=== PATIENT | female | born 1950 | race Caucasian/White ===

== ENCOUNTER 2016-05-26 22:42 | Emergency (ER) | payer OTHER, MEDICAID ==
[~2016-05-26] VITALS: Ht 162.6 cm; Wt 75.9 kg
[2016-05-26 22:42] VITALS: TEMP 97.2
[~2016-05-26 22:42] MED LIST: ANTIVERT 12.512.5 MG PO; ANTIVERT 25MG25 MG PO; ASPI325T6 PO; CHOLESTEROL MED; DIURETIC; EPIVIR300 MG PO; LAMIVUDINE; LAMIVUDINE PO; LIPITOR 10MG10 MG PO; NO HOME MEDICATIONS; NORCO 325 MG-51 TAB PO; PEPCID40 MG PO; PRAVACHOL 40MG40 MG PO; REYATAZ PO; REYATAZ200 MG PO; STAVUDINE PO; VIREAD PO; VIREAD150 MG PO; ZERIT PO; ZERIT15 MG PO; ZOFRAN 4MG T4 MG/TAB PO; [UNRECOGNIZED DRUG - OTHER] PO; [UNRECOGNIZED DRUG - OTHER] PO
[2016-05-26] MEDS ORDERED: MAGNESIUM OXID500 MG PO (22:46)
[2016-05-26] MEDS ORDERED: REYATAZ PO (22:47)
[2016-05-26 23:04] LABS: BASO % 0.3 % (0.0-2.0); EOS # 0.1 (0.0-0.7); EOS % 1.1 % (0-4.0); GRAN # 8.2 (1.4-6.5); GRAN % 77.4 % (42.2-75.2); HEMATOCRIT 40.2 % (37.0-47.0); HEMOGLOBIN 13.9 g/dl (12.5-16.0); LYMPH # 1.6 (1.2-3.4); MEAN CELL VOLUME 98 fl (80.0-100.0); MEAN CORPUSCULAR HEMOGLOBIN 34 pg (27.0-31.0); MEAN CORPUSCULAR HGB CONC 35 g/dl (33.0-37.0); MEAN PLATELET VOLUME 11.3 fl (7.4-10.4); MONO # 0.6 (0.1-0.6); MONO % 5.9 % (1.7-9.3); PLATELET COUNT 180 K/mm3 (130-400); RED BLOOD COUNT 4.11 M/mm3 (4.10-5.30); WHITE BLOOD COUNT 10.6 K/mm3 (4.8-10.8)
[2016-05-26 23:14] LABS: ADJUSTED CALCIUM 8.8 mg/dL (8.4-10.2); ALBUMIN 4.2 gm/dL (3.5-5.0); BILIRUBIN,TOTAL 1.9 mg/dL (0.0-1.0); CREATININE, serum 1.02 mg/dL (0.52-1.25); POTASSIUM 3.8 mmol/L (3.4-5.0); TOTAL PROTEIN 7.4 gm/dL (6.4-8.2)
[2016-05-26 23:55] VITALS: BP 116/80; PULSE 60
== END 2016-05-27 | disposition home or self-care (01) ==
LOC: COL.ER 22:42
PROVIDERS: Emergency Medicine
DX: R42 Dizziness and giddiness (principal); I25.10 Atherosclerotic heart disease of native coronary artery without angina pectoris; Z21 Asymptomatic human immunodeficiency virus [HIV] infection status

== ENCOUNTER → 2017-07-16 | Outpatient (CLI) | payer BC ==
[~2017-07-16] MED LIST changes: +MAGNESIUM OXID500 MG PO
== END ==
LOC: MC.RAD 11:23
DX: Z12.31 Encounter for screening mammogram for malignant neoplasm of breast (principal); N63.20 Unspecified lump in the left breast, unspecified quadrant

== ENCOUNTER → 2017-07-18 | Outpatient (CLI) | payer BC | LOC: MC.RAD 10:21 | DX: N63.20 Unspecified lump in the left breast, unspecified quadrant (principal) ==

== ENCOUNTER 2017-12-02 09:03 | Day surgery (SDC) | payer BC, MEDICAID ==
[2017-12-02] VITALS (12 sets, daily range): BP systolic 103–139; BP diastolic 61–87; PULSE 54–71; TEMP 98
[~2017-12-02] VITALS: Ht 162.7 cm; Wt 83.1 kg
[2017-12-02] MEDS ORDERED: INDERAL 20MG20 MG PO (09:49)
[2017-12-02 10:27] LABS: HEMATOCRIT 40.8 % (37.0-47.0); HEMOGLOBIN 13.9 g/dl (12.5-16.0); MEAN CELL VOLUME 99 fl (80.0-100.0); MEAN CORPUSCULAR HEMOGLOBIN 34 pg (27.0-31.0); MEAN CORPUSCULAR HGB CONC 34 g/dl (33.0-37.0); MEAN PLATELET VOLUME 11.5 fl (7.4-10.4); PLATELET COUNT 216 K/mm3 (130-400); RED BLOOD COUNT 4.12 M/mm3 (4.10-5.30); REDCELL DISTRIBUTION WIDTH-CV 13.2 % (11.5-14.5)
[2017-12-02 10:37] LABS: CALCIUM 9.2 mg/dL (8.4-10.2); CREATININE, serum 0.92 mg/dL (0.52-1.25); POTASSIUM 4.4 mmol/L (3.4-5.0); PROTHROMBIN TIME 11.7 SECONDS (9.7-12.8)
== END 2017-12-02 16:30 | disposition home or self-care (01) ==
LOC: COL.CAR 09:03
PROVIDERS: Internal Medicine Cardiovascular Disease
DX: I25.10 Atherosclerotic heart disease of native coronary artery without angina pectoris (principal); R94.39 Abnormal result of other cardiovascular function study; Z82.49 Family history of ischemic heart disease and other diseases of the circulatory system; G62.9 Polyneuropathy, unspecified; R55 Syncope and collapse; Z21 Asymptomatic human immunodeficiency virus [HIV] infection status; Z88.3 Allergy status to other anti-infective agents; Z91.030 Bee allergy status; Z88.8 Allergy status to other drugs, medicaments and biological substances; Z79.82 Long term (current) use of aspirin; Z81.8 Family history of other mental and behavioral disorders; Z82.3 Family history of stroke
CPT/HCPCS: J1200; J1644; J2250; J3010; Q9967

== ENCOUNTER → 2018-04-20 | Outpatient (CLI) | payer BC, MEDICARE ==
[~2018-04-20] MED LIST changes: +INDERAL 20MG20 MG PO
== END ==
LOC: COL.PUL 12:45
DX: R06.02 Shortness of breath (principal)
CPT/HCPCS: J7674

== ENCOUNTER → 2018-07-27 | Outpatient (CLI) | payer BC | LOC: COL.RAD 09:38 | DX: K82.8 Other specified diseases of gallbladder (principal); K80.20 Calculus of gallbladder without cholecystitis without obstruction; R05 Cough; R53.83 Other fatigue; B20 Human immunodeficiency virus [HIV] disease | CPT/HCPCS: A9537 ==

== ENCOUNTER 2018-08-21 06:54 | Day surgery (SDC) | payer BC ==
[~2018-08-21] VITALS: Ht 162.6 cm; Wt 78.6 kg
[2018-08-21 08:19] VITALS: BP 145/74; PULSE 50; TEMP 97.2
[2018-08-21] MEDS ORDERED: QVAR REDIHALE10.6 G1 IH (08:27)
[2018-08-21] MEDS ORDERED: EPIVIR300 MG PO (08:29)
[2018-08-21] MEDS ORDERED: NITROSTAT0.4 MG/TAB SL (08:34)
--- NOTE | 2018-08-21 08:42 | NUR ---
Pts HR consistently in the low 50's pre op. Albert Hardin CRNA made aware at this time. Pt denies complaints, pt asymptomatic.
--- NOTE | 2018-08-21 09:01 | NUR ---
Pt taken via cart by [facility] Michel to OR for scheduled surgery.
[2018-08-21 10:45] VITALS: BP 126/62; PULSE 57; TEMP 97.7
--- NOTE | 2018-08-21 10:45 | NUR ---
Pt returned via cart to [facility]. A&O. VSS-see flowsheet. Pt tolerating iced water. Brother in room at this time. x4 incisions noted with swiftset to abdomen, c/d/i. Side rails up, call light in reach. Pt requested chocolate pudding. Denies pain or nausea at this time.
[2018-08-21 11:00] VITALS: BP 129/64; PULSE 57
[2018-08-21 11:15] VITALS: BP 138/69; PULSE 49
[2018-08-21 11:30] VITALS: BP 143/76; PULSE 57
--- NOTE | 2018-08-21 12:00 | NUR ---
Pt tolerated pudding and water. VSS-see flowsheet. Denies complaints. Voiced being ready to go home. IV removed, pressure dressing applied. Surgical incisions remain clean, dry and intact. Discharge teaching completed, verbalized understanding. Taken via wheelchair to private vehicle for discharge home with brother driving pt home. Pt sent with follow-up appt, rx for norco, discharge instructions.
== END 2018-08-21 12:00 | disposition home or self-care (01) ==
LOC: SDCO 06:54
DX: K80.10 Calculus of gallbladder with chronic cholecystitis without obstruction (principal); B20 Human immunodeficiency virus [HIV] disease; J45.909 Unspecified asthma, uncomplicated; K21.9 Gastro-esophageal reflux disease without esophagitis; Z79.899 Other long term (current) drug therapy; Z79.82 Long term (current) use of aspirin; G43.909 Migraine, unspecified, not intractable, without status migrainosus; F41.9 Anxiety disorder, unspecified; Z82.49 Family history of ischemic heart disease and other diseases of the circulatory system; Z98.890 Other specified postprocedural states; G43.809 Other migraine, not intractable, without status migrainosus
CPT/HCPCS: J0690; J1100; J2300; J2405; J2704; J7120

== ENCOUNTER → 2018-09-16 | Outpatient (CLI) | payer BC ==
[~2018-09-16] MED LIST changes: +NITROSTAT0.4 MG/TAB SL; +QVAR REDIHALE10.6 G1 IH
== END ==
LOC: MC.RAD 08:35
DX: Z12.31 Encounter for screening mammogram for malignant neoplasm of breast (principal)

== ENCOUNTER 2020-12-15 11:29 | Day surgery (SDC) | payer BC ==
[2020-12-15] VITALS (10 sets, daily range): BP systolic 113–147; BP diastolic 68–93; PULSE 54–78; TEMP 98.6
[~2020-12-15] VITALS: Ht 162.6 cm; Wt 78.2 kg
[~2020-12-15 11:29] MED LIST changes: +MAG-OX 400400 MG/TAB PO; -MAGNESIUM OXID500 MG PO; +PEPCID 20MG TAB20 MG PO; -PEPCID40 MG PO
[2020-12-15 12:23] LABS: HEMATOCRIT 41.5 % (37.0-47.0); MEAN CELL VOLUME 98 fl (80.0-100.0); MEAN CORPUSCULAR HEMOGLOBIN 33 pg (27.0-31.0); MEAN CORPUSCULAR HGB CONC 34 g/dl (33.0-37.0); MEAN PLATELET VOLUME 11.6 fl (7.4-10.4); PLATELET COUNT 194 K/mm3 (130-400); RED BLOOD COUNT 4.25 M/mm3 (4.10-5.30); REDCELL DISTRIBUTION WIDTH-CV 12.9 % (11.5-14.5)
[2020-12-15 12:26] LABS: INR 1.1 (0.8-3.0); PROTHROMBIN TIME 11.9 SECONDS (9.7-12.8)
[2020-12-15 12:28] LABS: PARTIAL THROMBOPLASTIN TIME 20.3 SECONDS (26.0-37.0)
[2020-12-15 12:31] LABS: CALCIUM 9.2 mg/dL (8.4-10.2); CREATININE, serum 1.08 mg/dL (0.57-1.11)
--- NOTE | 2020-12-15 12:33 | NUR ---
SEE MERGE FOR ALL MEDICATION ADMINISTRATION TIMES/DOSAGES AND INTRA/POST SEDATION ASSESSMENT.
[2020-12-15] MEDS ORDERED: BIKTARVY 50-201 EACH PO (12:44)
[2020-12-15] MEDS ORDERED: CALCIUM 600MG+D1 TAB PO (12:45)
[2020-12-15] MEDS ORDERED: ASPIRIN E.C. 8181 MG PO (12:45)
[2020-12-15] MEDS ORDERED: VITAMIN D31000 I1 PO (12:46)
--- NOTE | 2020-12-15 13:45 | NUR ---
Pt is back from [facility] labor, bs report from Dorys KOROMA. Pt is drowsy, arouses to voice or gentle stimulation. VSS. NSR/SB on monitor. TR band in place to rt wrist. cms intact distal. call light at bs.
--- NOTE | 2020-12-15 15:00 | NUR ---
Pt awake and alert in bed. no problems with TR band. lunch ordered. call light in reach.
--- NOTE | 2020-12-15 17:00 | NUR ---
Pt did well during her recovery.She has eaten, has been up and ambulatory to bath room with steady gait. TR band has been removed withno problem. site dressed with bandaid, folded 2x2 and coban. cms remains intact distal. IV was dc'd with cath intact, dressing applied. I have reviewed dc/fu instructions with pt who verbalized understanding.
--- NOTE | 2020-12-15 17:30 | NUR ---
Pt escorted to exit at 1730, friend here to give pt ride home.
== END 2020-12-15 17:30 | disposition home or self-care (01) ==
LOC: COL.CAR 11:29
PROVIDERS: Internal Medicine Cardiovascular Disease
DX: I25.10 Atherosclerotic heart disease of native coronary artery without angina pectoris (principal); I10 Essential (primary) hypertension; R07.89 Other chest pain
CPT/HCPCS: C1769; J1200; J1644; J2250; J2930; J3010; Q9967

== ENCOUNTER → 2022-04-09 | Outpatient (CLI) | payer BC ==
[~2022-04-09] MED LIST changes: +ASPIRIN E.C. 8181 MG PO; +BIKTARVY 50-201 EACH PO; +CALCIUM 600MG+D1 TAB PO; +VITAMIN D31000 I1 PO
== END ==
LOC: MHCPAIN 10:26
DX: M47.892 Other spondylosis, cervical region (principal); M54.12 Radiculopathy, cervical region; N18.9 Chronic kidney disease, unspecified; B20 Human immunodeficiency virus [HIV] disease
CPT/HCPCS: G0463

== ENCOUNTER → 2022-04-25 | Outpatient (CLI) | payer BC | LOC: MHCPAIN 09:27 | DX: M47.812 Spondylosis without myelopathy or radiculopathy, cervical region (principal); M54.12 Radiculopathy, cervical region | CPT/HCPCS: J0461; J1100; Q9967 ==

== ENCOUNTER → 2022-06-05 | Outpatient (CLI) | payer BC | LOC: MHCPAIN 09:20 | DX: M47.892 Other spondylosis, cervical region (principal); M54.12 Radiculopathy, cervical region; M54.2 Cervicalgia; N18.9 Chronic kidney disease, unspecified; Z21 Asymptomatic human immunodeficiency virus [HIV] infection status | CPT/HCPCS: G0463 ==

== ENCOUNTER 2022-12-11 06:44 | Inpatient (IN) | payer BC ==
[2022-12-11] VITALS (12 sets, daily range): BP systolic 101–150; BP diastolic 57–71; PULSE 59–75; TEMP 97.8–98.6
[~2022-12-11] VITALS: Ht 162.6 cm; Wt 75.9 kg
[~2022-12-11 06:44] MED LIST changes: +BACTRIM DS 8001 TAB PO; +CALCIUM 600600 MG PO; -CALCIUM 600MG+D1 TAB PO; +DRAMAMINE 50MG50 MG PO; +TIAZAC120 MG PO; -VITAMIN D31000 I1 PO; +VITAMIN D31000 IU PO; +ZOCOR 20MG20 MG PO
[2022-12-11] MEDS ORDERED: HYZAAR 50-12.1 UDTAB PO (07:22)
[2022-12-12 01:48] VITALS: BP_SYST 106
[2022-12-12 03:33] VITALS: BP 104/62; PULSE 59; TEMP 98.4
[2022-12-12 04:13] VITALS: BP_SYST 104
[2022-12-12 08:14] VITALS: BP 101/54; PULSE 78; TEMP 98.8
[2022-12-12 09:00] VITALS: BP_SYST 101
[2022-12-12] MEDS ORDERED: IBU800 M1 PO (09:12)
[2022-12-12] MEDS ORDERED: TYLENOL W/COD1 UDTAB PO (09:12)
== END 2022-12-12 11:13 | disposition home or self-care (01) | DRG 743 ==
LOC: SDCO 06:44 → SURG 14:15 → SDCO 23:53 → SURG 23:54
PROVIDERS: Urology; ADMIT Student in an Organized Health Care Education/Training Program
PROC: 0UN24ZZ Release Bilateral Ovaries, Percutaneous Endoscopic Approach (ICD-10-PCS; 2022-12-11)
PROC: 0UN94ZZ Release Uterus, Percutaneous Endoscopic Approach (ICD-10-PCS; 2022-12-11)
PROC: 8E0W4CZ Robotic Assisted Procedure of Trunk Region, Percutaneous Endoscopic Approach (ICD-10-PCS; 2022-12-11)
PROC: 0UT9FZZ Resection of Uterus, Via Natural or Artificial Opening With Percutaneous Endoscopic Assistance (ICD-10-PCS; principal; 2022-12-11 09:00)
PROC: 0UT2FZZ Resection of Bilateral Ovaries, Via Natural or Artificial Opening With Percutaneous Endoscopic Assistance (ICD-10-PCS; 2022-12-11 09:00)
PROC: 0UB77ZZ Excision of Bilateral Fallopian Tubes, Via Natural or Artificial Opening (ICD-10-PCS; 2022-12-11 09:00)
PROC: 0DSP4ZZ Reposition Rectum, Percutaneous Endoscopic Approach (ICD-10-PCS; 2022-12-11 09:00)
DX: N81.3 Complete uterovaginal prolapse (principal); N83.201 Unspecified ovarian cyst, right side; R32 Unspecified urinary incontinence; N73.6 Female pelvic peritoneal adhesions (postinfective); R73.03 Prediabetes; E78.5 Hyperlipidemia, unspecified; G43.909 Migraine, unspecified, not intractable, without status migrainosus; K21.9 Gastro-esophageal reflux disease without esophagitis; M85.80 Other specified disorders of bone density and structure, unspecified site; G62.9 Polyneuropathy, unspecified; N18.32 Chronic kidney disease, stage 3b; I25.10 Atherosclerotic heart disease of native coronary artery without angina pectoris; I12.9 Hypertensive chronic kidney disease with stage 1 through stage 4 chronic kidney disease, or unspecified chronic kidney disease; D64.9 Anemia, unspecified; Z21 Asymptomatic human immunodeficiency virus [HIV] infection status; F90.9 Attention-deficit hyperactivity disorder, unspecified type; Z79.899 Other long term (current) drug therapy; Z88.8 Allergy status to other drugs, medicaments and biological substances; Z91.030 Bee allergy status; Z91.041 Radiographic dye allergy status; I25.2 Old myocardial infarction; Z23 Encounter for immunization
CPT/HCPCS: OP; A4314; C1769; C1771; C1781; J0690; J1100; J2371; J2405; J2704; J3010; J7120

== ENCOUNTER → 2023-04-15 | Outpatient (CLI) | payer BC ==
[~2023-04-15] MED LIST changes: +Gadoterate 15 ML VIAL IV ONE; +HYZAAR 50-12.1 UDTAB PO; +IBU800 M1 PO; +TYLENOL W/COD1 UDTAB PO
== END ==
LOC: COL.RAD 09:28
DX: M47.812 Spondylosis without myelopathy or radiculopathy, cervical region (principal); M48.02 Spinal stenosis, cervical region; M50.31 Other cervical disc degeneration, high cervical region; M50.321 Other cervical disc degeneration at C4-C5 level; M50.322 Other cervical disc degeneration at C5-C6 level; M50.323 Other cervical disc degeneration at C6-C7 level
CPT/HCPCS: A9575